=== PATIENT | male | born 1955 | race African-American/Black ===

== ENCOUNTER 2017-08-19 21:10 | Emergency (ER) | payer MEDICARE, MEDICAID ==
[~2017-08-19] VITALS: Ht 177.8 cm; Wt 81.8 kg
[2017-08-19] MEDS ORDERED: LABETALOL HCL 20MG/4ML CARPUJECT IV ONE (22:45)
[2017-08-19] MEDS ORDERED: LABETALOL 5MG/ML SYR 20 MG/4 ML SYRINGE IV ONE (23:00)
[2017-08-19 23:44] LABS: BASOPHILS % 1.1 % (0.0-2.0); EOSINOPHILS % 0.9 % (0.0-5.0); HEMATOCRIT. 39.5 % (42.0-52.0); HEMOGLOBIN. 13.1 g/dL (14.0-18.0); MEAN CORPUSCULAR HEMOGLOBIN 27.7 pg (28.0-32.0); MEAN CORPUSCULAR VOLUME 83.3 fL (80.0-94.0); MEAN PLATELET VOLUME 9.9 fl (7.4-10.4); MONOCYTES % 7.6 % (2.0-8.0); NEUTROPHILS % 77.4 % (40.0-76.0); PLATELET 185 x1000/uL (130-400); RED BLOOD CELL COUNT 4.74 mill/uL (4.7-6.1); RED CELL DISTRIBUTION WIDTH 14.2 % (11.6-14.6)
[2017-08-19 23:46] LABS: INR 1.1; PROTHROMBIN TIME 10.9 sec (9.4-11.6)
[2017-08-19 23:56] LABS: CARBON DIOXIDE 27 mEq/L (21-32); CHLORIDE 99 mEq/L (98-107); ETHANOL BLOOD < 10 mg/dL; TROPONIN I 0.04 ng/mL (0.00-0.04)
[2017-08-20 00:50] LABS: CLARITY URINE CLEAR (CLEAR); COLOR URINE YELLOW (YELLOW); GLUCOSE URINE 1+ (NEGATIVE); KETONES URINE NEGATIVE (NEGATIVE); LEUKOCYTE ESTERASE URINE NEGATIVE (NEGATIVE); NITRITE URINE NEGATIVE (NEGATIVE); OCCULT BLOOD URINE NEGATIVE (NEGATIVE); PROTEIN URINE NEGATIVE (NEGATIVE); SPECIFIC GRAVITY URINE 1.015 (1.005-1.030)
[2017-08-20 01:16] LABS: *AMPHETAMINES SCREEN URINE NEGATIVE (NEGATIVE); *BARBITURATES SCREEN URINE NEGATIVE (NEGATIVE); *BENZODIAZEPINES SCREEN URINE NEGATIVE (NEGATIVE); *COCAINE SCREEN URINE NEGATIVE (NEGATIVE); CANNABINOID URINE SCREEN NEGATIVE (NEGATIVE); METHADONE URINE SCREEN NEGATIVE (NEGATIVE); OPIATES URINE SCREEN NEGATIVE (NEGATIVE); PHENCYCLIDINE URINE SCREEN NEGATIVE (NEGATIVE)
[2017-08-20] MEDS ORDERED: POTASSIUM BICARB/CIT ACID 25 MEQ TABLET.EFF PO SCH (02:45)
[2017-08-20 02:50] VITALS: BP 146/95
== END 2017-08-20 05:50 | disposition home or self-care (01) ==
LOC: ER 21:47
DX: I16.0 Hypertensive urgency (principal); I10 Essential (primary) hypertension; E11.65 Type 2 diabetes mellitus with hyperglycemia; E87.6 Hypokalemia; Z86.73 Personal history of transient ischemic attack (TIA), and cerebral infarction without residual deficits; Z99.3 Dependence on wheelchair
CPT/HCPCS: 36415; 70450; 71010; 80053; 80305; 81001; 82962; 84484; 85025; 85610; 93005; 96374; 99285; G0482; J3490

== ENCOUNTER 2017-08-31 03:34 | Inpatient (IN) | payer MEDICARE, MEDICAID ==
[~2017-08-31] VITALS: Ht 177.8 cm; Wt 82.2 kg
[2017-08-31] MEDS ORDERED: ASPIRIN 81MG TABLET PO ONE (04:00)
[2017-08-31] MEDS ORDERED: LABETALOL HCL 20MG/4ML CARPUJECT IV ONE (04:00)
[2017-08-31 04:09] LABS: BASOPHILS % 0.9 % (0.0-2.0); EOSINOPHILS % 1.8 % (0.0-5.0); HEMATOCRIT. 39.7 % (42.0-52.0); HEMOGLOBIN. 12.7 g/dL (14.0-18.0); LYMPHOCYTES % 21.2 % (20.0-50.0); MEAN CORPUSCULAR HEMOGLOBIN 26.9 pg (28.0-32.0); MEAN PLATELET VOLUME 8.7 fl (7.4-10.4); NEUTROPHILS % 64.1 % (40.0-76.0); PLATELET 191 x1000/uL (130-400); RED BLOOD CELL COUNT 4.73 mill/uL (4.7-6.1); RED CELL DISTRIBUTION WIDTH 14.5 % (11.6-14.6)
[2017-08-31 04:14] LABS: INR 1.1; PROTHROMBIN TIME 11.7 sec (9.4-11.6)
[2017-08-31 04:15] LABS: AMMONIA 27 uMol/L (<32)
[2017-08-31] MEDS ORDERED: LABETALOL 5MG/ML SYR 20 MG/4 ML SYRINGE IV SCH (04:18)
[2017-08-31] MEDS ORDERED: CLONIDINE 0.3MG TABLET PO SCH (04:22)
[2017-08-31 04:31] LABS: CARBON DIOXIDE 23 mEq/L (21-32); CHLORIDE 102 mEq/L (98-107); CREATINE KINASE 268 IU/L (39-308); ETHANOL BLOOD < 10 mg/dL; TROPONIN I 0.02 ng/mL (0.00-0.04)
[2017-08-31 07:39] LABS: *AMPHETAMINES SCREEN URINE NEGATIVE (NEGATIVE); *BARBITURATES SCREEN URINE NEGATIVE (NEGATIVE); *BENZODIAZEPINES SCREEN URINE NEGATIVE (NEGATIVE); *COCAINE SCREEN URINE NEGATIVE (NEGATIVE); CANNABINOID URINE SCREEN NEGATIVE (NEGATIVE); METHADONE URINE SCREEN NEGATIVE (NEGATIVE); OPIATES URINE SCREEN NEGATIVE (NEGATIVE); PHENCYCLIDINE URINE SCREEN NEGATIVE (NEGATIVE)
[2017-08-31 07:43] LABS: CLARITY URINE CLEAR (CLEAR); COLOR URINE YELLOW (YELLOW); GLUCOSE URINE NEGATIVE (NEGATIVE); KETONES URINE NEGATIVE (NEGATIVE); LEUKOCYTE ESTERASE URINE NEGATIVE (NEGATIVE); NITRITE URINE NEGATIVE (NEGATIVE); OCCULT BLOOD URINE NEGATIVE (NEGATIVE); PROTEIN URINE NEGATIVE (NEGATIVE); SPECIFIC GRAVITY URINE 1.017 (1.005-1.030); UROBILINOGEN URINE 0.2 E.U./dL (0.2-1.0)
[2017-08-31] MEDS ORDERED: CLONIDINE 0.1MG TABLET PO PRN (08:15)
[2017-08-31] MEDS ORDERED: DIPHENHYDRAMINE 50MG/ML VIAL IV PRN (08:15)
[2017-08-31] MEDS ORDERED: GUAIFENESIN 200MG/10ML SUGAR FREE UDC PO PRN (08:15)
[2017-08-31] MEDS ORDERED: MAGNESIUM/ALUMINUM HYDROXIDE/SIMETHICONE 30ML UDC PO PRN (08:15)
[2017-08-31] MEDS ORDERED: IPRATROPIUM/ALBUTEROL 0.5-3(2.5)MG/3ML NEB INH PRN (08:15)
[2017-08-31] MEDS ORDERED: HYDROCODONE/ACETAMINOPHEN 5/325MG TABLET PO PRN (08:15)
[2017-08-31] MEDS ORDERED: ACETAMINOPHEN 325MG TABLET PO PRN (08:15)
[2017-08-31] MEDS ORDERED: ONDANSETRON HCL 4MG/2ML VIAL IV PRN (08:15)
[2017-08-31] MEDS ORDERED: NA PHOS,M-B/NA PHOS,DI-BA ENEMA 118ML PR PRN (08:15)
[2017-08-31] MEDS ORDERED: LORAZEPAM 0.5MG TABLET PO PRN (08:15)
[2017-08-31] MEDS ORDERED: MORPHINE SULFATE 2 MG/ML CPJ (NOT FOR IM USE) IV PRN (08:15)
[2017-08-31 08:35] VITALS: BP 186/118
[2017-08-31] MEDS ORDERED: OMEP20CA10 PO (10:26)
[2017-08-31] MEDS ORDERED: GLIP5TAB12 PO (10:26)
[2017-08-31] MEDS ORDERED: METF10002 PO (10:26)
[2017-08-31] MEDS ORDERED: VERA240C2 PO (10:26)
[2017-08-31] MEDS ORDERED: CLON0.1T PO (10:26)
[2017-08-31] MEDS ORDERED: ASPI-1159 PO (10:26)
[2017-08-31] MEDS ORDERED: ATOR20TA65 PO (10:26)
[2017-08-31] MEDS ORDERED: CARV6.2548 PO (10:26)
[2017-08-31] MEDS ORDERED: KDUR20 PO (10:26)
[2017-08-31] MEDS ORDERED: LOSA1TAB37 PO (10:26)
[2017-08-31] MEDS ORDERED: VERAPAMIL HCL 120 MG PO SCH (10:30)
[2017-08-31] MEDS ORDERED: CLONIDINE 0.1MG TABLET PO SCH (10:30)
[2017-08-31] MEDS ORDERED: OMEPRAZOLE 20MG CAPSULE EXTENDED RELEASE PO PRN (10:30)
[2017-08-31] MEDS ORDERED: MEDICATION NOT ON FORMULARY EA (Losartan/Hydrochlorothiazide (Losartan-Hctz 100-25 Mg Ta PO SCH (10:30)
[2017-08-31] MEDS ORDERED: DEXTROSE 50% WATER 50ML SYRINGE IV PRN (10:45)
[2017-08-31] MEDS: ASPIRIN 81MG EC TABLET PO SCH (11:01)
[2017-08-31] MEDS: DOCUSATE SODIUM 100MG CAPSULE PO PRN ×2 (11:03→18:45)
[2017-08-31] MEDS: ENOXAPARIN 40MG/0.4ML SYR SUBCUT SCH (11:03)
[2017-08-31 11:30] LABS: CARBON DIOXIDE 27 mEq/L (21-32); CHLORIDE 102 mEq/L (98-107); TROPONIN I 0.04 ng/mL (0.00-0.04)
[2017-08-31] MEDS: SODIUM CHLORIDE 0.45% 1,000 ML IV SCH (11:30)
[2017-08-31] MEDS: HYDROCHLOROTHIAZIDE 25MG TABLET PO SCH (11:38)
[2017-08-31] MEDS: VERAPAMIL HCL 120 MG PO SCH (11:38)
[2017-08-31] MEDS: LOSARTAN POTASSIUM 100 MG TABLET PO SCH (11:38)
[2017-08-31] MEDS: INSULIN LISPRO 100 UNITS/ML SUBCUT SCH ×3 (11:49→21:00)
[2017-08-31] MEDS: BLOOD SUGAR DIAGNOSTIC STRIP TEST SCH ×3 (11:49→21:15)
[2017-08-31 12:00] VITALS: BP 184/97
[2017-08-31 16:00] VITALS: BP 187/95
[2017-08-31] MEDS: GLIPIZIDE 5MG TABLET PO SCH (17:00)
[2017-08-31] MEDS ORDERED: MEDICATION NOT ON FORMULARY EA (Metformin Hcl 1 TAB) PO SCH (17:00)
[2017-08-31] MEDS: METFORMIN HCL 500MG TABLET PO SCH (18:44)
[2017-08-31] MEDS: POTASSIUM CHLORIDE 20MEQ/PACKET PO SCH (18:44)
[2017-08-31] MEDS: CARVEDILOL 6.25 MG TABLET PO SCH (18:45)
[2017-08-31 20:00] VITALS: BP 146/102
[2017-08-31] MEDS: ATORVASTATIN CALCIUM 20MG TABLET PO SCH (21:15)
[2017-08-31] MEDS: CLONIDINE 0.2MG TABLET PO SCH (21:16)
[2017-09-01] VITALS: BP 139/88
[2017-09-01 04:00] VITALS: BP 118/76
[2017-09-01] MEDS: SODIUM CHLORIDE 0.45% 1,000 ML IV SCH (05:16)
[2017-09-01] MEDS: CLONIDINE 0.2MG TABLET PO SCH ×3 (06:00→20:41)
[2017-09-01] MEDS: BLOOD SUGAR DIAGNOSTIC STRIP TEST SCH ×3 (06:29→21:00)
[2017-09-01 06:37] LABS: CARBON DIOXIDE 26 mEq/L (21-32); CHLORIDE 102 mEq/L (98-107)
[2017-09-01 06:43] LABS: HDL CHOLESTEROL 38 mg/dL (40-59); LDL CHOLESTEROL 47 mg/dL (5-100)
[2017-09-01 06:51] LABS: HEMATOCRIT. 35.2 % (42.0-52.0); HEMOGLOBIN. 11.5 g/dL (14.0-18.0); MEAN CORPUSCULAR HEMOGLOBIN 27.1 pg (28.0-32.0); MEAN CORPUSCULAR VOLUME 83.3 fL (80.0-94.0); MEAN PLATELET VOLUME 9.2 fl (7.4-10.4); PLATELET 167 x1000/uL (130-400); RED BLOOD CELL COUNT 4.23 mill/uL (4.7-6.1); RED CELL DISTRIBUTION WIDTH 14.5 % (11.6-14.6)
[2017-09-01] MEDS: INSULIN LISPRO 100 UNITS/ML SUBCUT SCH ×3 (07:15→21:00)
[2017-09-01 08:00] VITALS: BP 148/89
[2017-09-01] MEDS: CARVEDILOL 6.25 MG TABLET PO SCH ×2 (09:09→17:00)
[2017-09-01] MEDS: ASPIRIN 81MG EC TABLET PO SCH (09:10)
[2017-09-01] MEDS: LOSARTAN POTASSIUM 100 MG TABLET PO SCH (09:10)
[2017-09-01] MEDS: HYDROCHLOROTHIAZIDE 25MG TABLET PO SCH (09:10)
[2017-09-01] MEDS: VERAPAMIL HCL 120 MG PO SCH (09:10)
[2017-09-01] MEDS: POTASSIUM CHLORIDE 20MEQ/PACKET PO SCH ×2 (09:11→20:57)
[2017-09-01] MEDS: METFORMIN HCL 500MG TABLET PO SCH ×2 (09:11→17:15)
[2017-09-01] MEDS: ENOXAPARIN 40MG/0.4ML SYR SUBCUT SCH (09:12)
[2017-09-01] MEDS: GLIPIZIDE 5MG TABLET PO SCH ×2 (09:50→17:00)
[2017-09-01 09:59] LABS: PLATELET ESTIMATE NORMAL
[2017-09-01 12:25] VITALS: BP 150/94
[2017-09-01 13:21] LABS: BG CARBOXYHEMOGLOBIN 0.3 % (0.5-1.5); BG DEOXYHEMOGLOBIN 2.8 % (0.0-5.0); BG FRACTION INSPIRED OXYGEN 21; BG HCO3 ACT 23.8 mmol/L (22.0-26.0); BG METHEMOGLOBIN 0.3 % (0.0-1.5); BG OXYGEN SATURATION 97.2 % (92.0-98.5); BG OXYHEMOGLOBIN 96.6 % (94.0-97.0); BG PCO2 35.7 mmHg (35.0-45.0); BG PH 7.441 (7.350-7.450); BG PO2 89.3 mmHg (75.0-100.0); BG SAMPLE SITE RIGHT BRACHIAL; BG TOTAL HEMOGLOBIN 13.4 g/dL (12.0-18.0); BG VENT MODE ROOM AIR
[2017-09-01 13:34] LABS: INR 1.1; PROTHROMBIN TIME 11.5 sec (9.4-11.6)
[2017-09-01 16:00] VITALS: BP 175/110
[2017-09-01] MEDS ORDERED: BLOOD SUGAR DIAGNOSTIC STRIP TEST SCH (16:45)
[2017-09-01 20:00] VITALS: BP 144/76
[2017-09-01] MEDS: ATORVASTATIN CALCIUM 20MG TABLET PO SCH (20:41)
[2017-09-02] VITALS: BP 113/90
[2017-09-02] MEDS: SODIUM CHLORIDE 0.45% 1,000 ML IV SCH ×2 (02:40→21:15)
[2017-09-02 04:00] VITALS: BP 147/95
[2017-09-02] MEDS: BLOOD SUGAR DIAGNOSTIC STRIP TEST SCH ×4 (06:07→20:58)
[2017-09-02] MEDS: CLONIDINE 0.2MG TABLET PO SCH ×3 (06:11→23:00)
[2017-09-02] MEDS: INSULIN LISPRO 100 UNITS/ML SUBCUT SCH ×4 (06:15→20:58)
[2017-09-02 08:00] VITALS: BP 147/83
[2017-09-02] MEDS: ASPIRIN 81MG EC TABLET PO SCH (08:58)
[2017-09-02] MEDS: LOSARTAN POTASSIUM 100 MG TABLET PO SCH (08:58)
[2017-09-02] MEDS: VERAPAMIL HCL 120 MG PO SCH (08:58)
[2017-09-02] MEDS: METFORMIN HCL 500MG TABLET PO SCH ×2 (08:58→16:58)
[2017-09-02] MEDS: HYDROCHLOROTHIAZIDE 25MG TABLET PO SCH (08:58)
[2017-09-02] MEDS: FAMOTIDINE 20MG TABLET PO SCH ×2 (08:58→21:12)
[2017-09-02] MEDS: GLIPIZIDE 5MG TABLET PO SCH ×2 (08:58→16:58)
[2017-09-02] MEDS: CARVEDILOL 6.25 MG TABLET PO SCH ×2 (08:58→16:58)
[2017-09-02] MEDS: ENOXAPARIN 40MG/0.4ML SYR SUBCUT SCH (08:59)
[2017-09-02] MEDS: POTASSIUM CHLORIDE 20MEQ/PACKET PO SCH ×2 (08:59→16:58)
[2017-09-02 09:52] LABS: BASOPHILS % 0.6 % (0.0-2.0); EOSINOPHILS % 2.4 % (0.0-5.0); HEMATOCRIT. 37.7 % (42.0-52.0); HEMOGLOBIN. 12.1 g/dL (14.0-18.0); LYMPHOCYTES % 18.8 % (20.0-50.0); MEAN CORPUSCULAR HEMOGLOBIN 26.9 pg (28.0-32.0); MEAN CORPUSCULAR VOLUME 83.6 fL (80.0-94.0); MEAN PLATELET VOLUME 9.2 fl (7.4-10.4); MONOCYTES % 11.9 % (2.0-8.0); NEUTROPHILS % 66.3 % (40.0-76.0); PLATELET 165 x1000/uL (130-400); RED BLOOD CELL COUNT 4.51 mill/uL (4.7-6.1); RED CELL DISTRIBUTION WIDTH 14.3 % (11.6-14.6)
[2017-09-02 10:17] LABS: CARBON DIOXIDE 26 mEq/L (21-32); CHLORIDE 102 mEq/L (98-107); TROPONIN I 0.03 ng/mL (0.00-0.04)
[2017-09-02 12:00] VITALS: BP 158/91
[2017-09-02 16:00] VITALS: BP 161/101
[2017-09-02 21:00] VITALS: BP 130/75
[2017-09-02] MEDS: ATORVASTATIN CALCIUM 20MG TABLET PO SCH (21:12)
[2017-09-03] MEDS: INSULIN LISPRO 100 UNITS/ML SUBCUT SCH ×4 (07:15→21:00)
[2017-09-03] MEDS: BLOOD SUGAR DIAGNOSTIC STRIP TEST SCH ×4 (07:16→21:16)
[2017-09-03] MEDS: CLONIDINE 0.2MG TABLET PO SCH ×3 (07:17→21:00)
[2017-09-03 08:00] VITALS: BP 149/87
[2017-09-03 08:25] LABS: BG BASE EXCESS 4.7 mmol/L (-2.0-2.0); BG CARBOXYHEMOGLOBIN 0.3 % (0.5-1.5); BG DEOXYHEMOGLOBIN 2.4 % (0.0-5.0); BG FRACTION INSPIRED OXYGEN 21; BG HCO3 ACT 28.7 mmol/L (22.0-26.0); BG METHEMOGLOBIN 0.1 % (0.0-1.5); BG OXYGEN SATURATION 97.6 % (92.0-98.5); BG OXYHEMOGLOBIN 97.2 % (94.0-97.0); BG PCO2 40.5 mmHg (35.0-45.0); BG PH 7.469 (7.350-7.450); BG PO2 99.4 mmHg (75.0-100.0); BG SAMPLE SITE RIGHT RADIAL; BG TOTAL HEMOGLOBIN 12.4 g/dL (12.0-18.0); BG VENT MODE ROOM AIR
[2017-09-03] MEDS: POTASSIUM CHLORIDE 20MEQ/PACKET PO SCH ×2 (09:08→18:11)
[2017-09-03] MEDS: FAMOTIDINE 20MG TABLET PO SCH ×2 (09:08→21:00)
[2017-09-03] MEDS: METFORMIN HCL 500MG TABLET PO SCH ×2 (09:08→18:18)
[2017-09-03] MEDS: LOSARTAN POTASSIUM 100 MG TABLET PO SCH (09:09)
[2017-09-03] MEDS: VERAPAMIL HCL 120 MG PO SCH (09:09)
[2017-09-03] MEDS: CARVEDILOL 6.25 MG TABLET PO SCH ×2 (09:10→18:10)
[2017-09-03] MEDS: GLIPIZIDE 5MG TABLET PO SCH ×2 (09:10→18:11)
[2017-09-03] MEDS: HYDROCHLOROTHIAZIDE 25MG TABLET PO SCH (09:10)
[2017-09-03] MEDS: ASPIRIN 81MG EC TABLET PO SCH (09:10)
[2017-09-03] MEDS: ENOXAPARIN 40MG/0.4ML SYR SUBCUT SCH (09:11)
[2017-09-03 12:00] VITALS: BP 174/104
[2017-09-03 16:00] VITALS: BP 152/92
[2017-09-03] MEDS: SODIUM CHLORIDE 0.45% 1,000 ML IV SCH (17:00)
[2017-09-03 20:00] VITALS: BP 146/98
[2017-09-03] MEDS: ATORVASTATIN CALCIUM 20MG TABLET PO SCH (21:00)
[2017-09-04] VITALS: BP 135/80
[2017-09-04 04:00] VITALS: BP 151/92
[2017-09-04] MEDS: BLOOD SUGAR DIAGNOSTIC STRIP TEST SCH ×2 (05:49→11:45)
[2017-09-04] MEDS: CLONIDINE 0.2MG TABLET PO SCH ×2 (05:49→13:07)
[2017-09-04] MEDS: INSULIN LISPRO 100 UNITS/ML SUBCUT SCH ×2 (05:49→12:15)
[2017-09-04 08:00] VITALS: BP 145/85
[2017-09-04 08:21] LABS: BG CARBOXYHEMOGLOBIN 0.8 % (0.5-1.5); BG DEOXYHEMOGLOBIN 4.1 % (0.0-5.0); BG FRACTION INSPIRED OXYGEN 21; BG HCO3 ACT 22.4 mmol/L (22.0-26.0); BG METHEMOGLOBIN 0.1 % (0.0-1.5); BG OXYGEN SATURATION 95.9 % (92.0-98.5); BG PCO2 33.6 mmHg (35.0-45.0); BG PH 7.442 (7.350-7.450); BG PO2 79.7 mmHg (75.0-100.0); BG SAMPLE SITE RIGHT BRACHIAL; BG TOTAL HEMOGLOBIN 13.1 g/dL (12.0-18.0); BG VENT MODE ROOM AIR
[2017-09-04] MEDS: METFORMIN HCL 500MG TABLET PO SCH (08:24)
[2017-09-04] MEDS: POTASSIUM CHLORIDE 20MEQ/PACKET PO SCH (08:24)
[2017-09-04] MEDS: CARVEDILOL 6.25 MG TABLET PO SCH (08:25)
[2017-09-04] MEDS: FAMOTIDINE 20MG TABLET PO SCH (08:25)
[2017-09-04] MEDS: VERAPAMIL HCL 120 MG PO SCH (08:25)
[2017-09-04] MEDS: ENOXAPARIN 40MG/0.4ML SYR SUBCUT SCH (08:25)
[2017-09-04] MEDS: LOSARTAN POTASSIUM 100 MG TABLET PO SCH (08:26)
[2017-09-04] MEDS: HYDROCHLOROTHIAZIDE 25MG TABLET PO SCH (08:26)
[2017-09-04] MEDS: GLIPIZIDE 5MG TABLET PO SCH (08:26)
[2017-09-04] MEDS: ASPIRIN 81MG EC TABLET PO SCH (08:26)
[2017-09-04 12:00] VITALS: BP 173/114
[2017-09-04] MEDS: SODIUM CHLORIDE 0.45% 1,000 ML IV SCH (13:06)
[2017-09-04] MEDS ORDERED: CLONIDINE 0.1MG TABLET PO PRN (15:35)
[2017-09-04] MEDS ORDERED: CLONIDINE 0.2MG TABLET PO PRN (15:36)
[2017-09-04 16:09] VITALS: BP 159/88
[2017-09-04 16:11] VITALS: BP 159/88
== END 2017-09-04 17:00 | DRG 640 ==
LOC: ER 03:34 → EDBEDREQ 05:35 → 5WST 07:18 → ENRESERV 07:18
PROVIDERS: ADMIT Internal Medicine; ATTEND Internal Medicine
DX: E86.0 Dehydration (principal); G93.41 Metabolic encephalopathy; E46 Unspecified protein-calorie malnutrition; I69.354 Hemiplegia and hemiparesis following cerebral infarction affecting left non-dominant side; I16.0 Hypertensive urgency; Z93.0 Tracheostomy status; E11.22 Type 2 diabetes mellitus with diabetic chronic kidney disease; R53.1 Weakness; E78.5 Hyperlipidemia, unspecified; I12.9 Hypertensive chronic kidney disease with stage 1 through stage 4 chronic kidney disease, or unspecified chronic kidney disease; I25.10 Atherosclerotic heart disease of native coronary artery without angina pectoris; K59.09 Other constipation; Z60.2 Problems related to living alone; N18.9 Chronic kidney disease, unspecified; Z79.82 Long term (current) use of aspirin; Z79.84 Long term (current) use of oral hypoglycemic drugs; Z79.899 Other long term (current) drug therapy; Z68.26 Body mass index [BMI] 26.0-26.9, adult; I69.322 Dysarthria following cerebral infarction; Z71.89 Other specified counseling
CPT/HCPCS: 36415; 36600; 70450; 70551; 71010; 74176; 80048; 80053; 80061; 80305; 80307; 80329; 81003; 82140; 82375; 82550; 82805; 82962; 83605; 83880; 84443; 84484; 85025; 85384; 85610; 87804; 92523; 93005; 93306; 93880; 94667; 96374; 97162; 97166; 99285; A6261; G0482; J1650; J3490

== ENCOUNTER 2018-11-17 11:56 | Emergency (ER) | payer MEDICARE, MEDICAID ==
[~2018-11-17] VITALS: Ht 177.8 cm; Wt 80.0 kg
[~2018-11-17 11:56] MED LIST: ASPI-1159 PO; ATOR20TA65 PO; CARV6.2548 PO; CLON0.1T PO; GLIP5TAB12 PO; KDUR20 PO; LOSA1TAB37 PO; METF-416 PO; OMEP20CA10 PO; VERA240C2 PO
[2018-11-17] MEDS ORDERED: ONDANSETRON HCL 4MG/2ML INJ IV STA (12:13)
[2018-11-17] MEDS ORDERED: MORPHINE SULFATE 4 MG/ML CPJ (NOT FOR IM USE) IV STA (12:13)
[2018-11-17] MEDS ORDERED: CLONIDINE 0.2MG TABLET PO ONE (12:15)
[2018-11-17 13:19] LABS: BASOPHILS % 0.7 % (0.0-2.0); EOSINOPHILS % 2.1 % (0.0-5.0); HEMATOCRIT. 43.1 % (42.0-52.0); LYMPHOCYTES % 18.4 % (20.0-50.0); MEAN CORPUSCULAR HEMOGLOBIN 27.3 pg (28.0-32.0); MEAN CORPUSCULAR VOLUME 83.8 fL (80.0-94.0); MEAN PLATELET VOLUME 9.8 fl (7.4-10.4); MONOCYTES % 10.3 % (2.0-8.0); NEUTROPHILS % 68.5 % (40.0-76.0); PLATELET 177 x1000/uL (130-400); RED BLOOD CELL COUNT 5.14 mill/uL (4.7-6.1); RED CELL DISTRIBUTION WIDTH 14.2 % (11.6-14.6)
[2018-11-17 13:22] LABS: CHLORIDE 100 mEq/L (98-107)
[2018-11-17 13:24] LABS: PARTIAL THROMBOPLASTIN TIME 26.6 sec (23.4-31.0); PROTHROMBIN TIME 10.4 sec (9.1-11.1)
[2018-11-17] MEDS ORDERED: HYDRALAZINE 20MG/ML VIAL IV ONE ×2 (17:15→19:15)
[2018-11-17 19:29] VITALS: BP 167/102
== END 2018-11-17 19:42 | disposition home or self-care (01) ==
LOC: ER 11:56
DX: R51 Headache (principal); I10 Essential (primary) hypertension; E11.9 Type 2 diabetes mellitus without complications; Z86.73 Personal history of transient ischemic attack (TIA), and cerebral infarction without residual deficits; Z79.82 Long term (current) use of aspirin; Z79.899 Other long term (current) drug therapy
CPT/HCPCS: 36415; 70450; 71045; 80053; 84484; 85025; 85610; 85730; 93005; 96374; 96376; 99284; J0360

== ENCOUNTER 2025-01-26 16:08 | Emergency (ER) | payer OTHER, MEDICAID ==
[~2025-01-26] VITALS: Ht 175.3 cm; Wt 82.0 kg
[~2025-01-26 16:08] MED LIST changes: -ASPI-1159 PO; +ASPI-1497 PO; -GLIP5TAB12 PO; +GLIP5TAB22 PO; -OMEP20CA10 PO; +OMEP20CA14 PO
[2025-01-26 16:15] VITALS: O2SAT 100
[2025-01-26 17:03] LABS: HEMATOCRIT. 37.1 % (42.0-52.0); HEMOGLOBIN. 11.8 g/dL (14.0-18.0); MEAN CORPUSCULAR HEMOGLOBIN 26.9 pg (28.0-32.0); MEAN CORPUSCULAR HGB CONC 31.9 g/dL (31.0-37.0); MEAN CORPUSCULAR VOLUME 84.4 fL (80.0-94.0); MEAN PLATELET VOLUME 8.4 fl (7.4-10.4); PLATELET 155 x1000/uL (130-400); RED CELL DISTRIBUTION WIDTH 15.2 % (11.6-14.6); WHITE BLOOD COUNT 3.1 x1000/uL (4.5-11.0)
[2025-01-26 17:06] LABS: DIFFERENTIAL COMMENT 1
[2025-01-26 17:07] LABS: POTASSIUM 4.3 mEq/L (3.5-5.1)
[2025-01-26 17:09] LABS: CALCIUM 8.9 mg/dL (8.7-10.4); PROTHROMBIN TIME 10.9 sec (9.6-11.0)
[2025-01-26 17:31] LABS: PLATELET ESTIMATE NORMAL
[2025-01-26 19:28] VITALS: BP 138/72; PULSE 71; RESP 14; TEMP 36.7; O2SAT 99
== END 2025-01-26 19:31 | disposition home or self-care (01) ==
LOC: ER 16:08 → EDBEDREQ 16:46 → CANBEDREQ 18:27 → ER 19:31
DX: H53.8 Other visual disturbances (principal); E11.9 Type 2 diabetes mellitus without complications; I10 Essential (primary) hypertension; Z79.899 Other long term (current) drug therapy; Z79.84 Long term (current) use of oral hypoglycemic drugs; Z79.82 Long term (current) use of aspirin; Z98.890 Other specified postprocedural states; Z86.73 Personal history of transient ischemic attack (TIA), and cerebral infarction without residual deficits
CPT/HCPCS: 36415; 80048; 85025; 99284; A4606

== ENCOUNTER 2025-04-18 12:47 | Emergency (ER) | payer OTHER, MEDICAID ==
[~2025-04-18] VITALS: Ht 177.8 cm; Wt 80.0 kg
[2025-04-18 12:52] VITALS: O2SAT 100
[2025-04-18 15:10] LABS: HEMATOCRIT. 36.5 % (42.0-52.0); HEMOGLOBIN. 11.8 g/dL (14.0-18.0); MEAN PLATELET VOLUME 8.5 fl (7.4-10.4); PLATELET 166 x1000/uL (130-400); RED BLOOD CELL COUNT 4.29 mill/uL (4.7-6.1); RED CELL DISTRIBUTION WIDTH 16.0 % (11.6-14.6)
[2025-04-18 15:17] LABS: CREATININE 2.5 mg/dL (0.6-1.3); UREA NITROGEN BLOOD 27 mg/dL (9-23)
[2025-04-18 15:19] LABS: ASPARTATE AMINOTRANSFERASE 12 IU/L (<34); BILIRUBIN TOTAL 0.4 mg/dL (0.1-1.0); PROTEIN TOTAL 7.6 g/dL (6.0-8.3)
[2025-04-18 15:45] LABS: EOSINOPHILS % MANUAL 4.0 % (0.0-5.0); LYMPHOCYTES % MANUAL 14.0 % (20.0-50.0); MONOCYTES % MANUAL 12.0 % (2.0-8.0); NEUTROPHILS % MANUAL 70.0 % (45.0-75.0); PLATELET ESTIMATE NORMAL
[2025-04-18] MEDS: CLONIDINE 0.1MG TABLET PO NR (19:58)
[2025-04-18] MEDS ORDERED: CLONIDINE 0.2MG TABLET PO ONE (20:00)
[2025-04-18 20:10] VITALS: BP 151/93; PULSE 75; RESP 12; TEMP 36.7; O2SAT 99
== END 2025-04-18 20:26 | disposition home or self-care (01) ==
LOC: ER 12:47
DX: I69.398 Other sequelae of cerebral infarction (principal); E11.9 Type 2 diabetes mellitus without complications; I10 Essential (primary) hypertension; Z79.899 Other long term (current) drug therapy
CPT/HCPCS: 36415; 80053; 85025; 99283; 99284